=== PATIENT | female | born 1980 | race Caucasian/White ===

== ENCOUNTER 2016-12-08 20:14 | Emergency (ER) | payer OTHER ==
[~2016-12-08] VITALS: Ht 175.3 cm; Wt 131.8 kg
[~2016-12-08 20:14] MED LIST: AMOX-366 PO; OXYC1TAB24 PO; PRE20 PO
[2016-12-08 20:16] VITALS: BP 159/104; PULSE 123; RESP 18; O2SAT 97
[2016-12-08 21:23] LABS: Mean Corpuscular Volume 76 fL (81-100); NEUTROPHILS % (AUTO) 71 % (40-74); Platelet Count 304 bil/L (150-400)
[2016-12-08 21:24] LABS: BASOPHILS % (AUTO) 0 % (0-3); EOSINOPHILS % (AUTO) 2 % (0-5); MONOCYTES % (AUTO) 5 % (4-12)
[2016-12-08 21:40] LABS: Magnesium 1.9 mg/dL (1.6-2.6)
--- NOTE | 2016-12-08 22:29 | ED.REPORT ---
HPI-Abd Pain F Under 41 Date of Service Dec 08, 2016 ED Provider: Rito Yoon MD Pt is a 36 y/o female w/ a hx of multiple kidney stones presenting to the ED c/ o left flank pain onset 2 days ago. She has a 20 year history of kidney stones and has had a ureteral stent placed in the right ureter previously as well as required a surgical removal of a stone on the right. She is certain her pain now is caused by a kidney stone and states that "it is right at the bladder and almost out". She is out of Flomax and her typical pain medication. She c/o associated mild dysuria. Pt denies fever, chills, abdominal pain, nausea, vomiting. Nursing Notes Stated Complaint: KIDNEY STONES Chief Complaint: Female Abdominal Pain Nursing Notes Reviewed: Yes Allergies: Coded Allergies: No Known Allergies (Verified Allergy, Unknown, 03/18/15) Scheduled Amoxicillin/Clav K 875-125 mg (Augmentin 875-125 mg) 1 Each Tablet 1 TABLET PO BID Prednisone (PredniSONE) 20 Mg Tablet 40 MG PO DAILY Tamsulosin (Flomax) 0.4 Mg Capsule 0.4 MG PO DAILY Scheduled PRN oxyCODONE-Acetaminophen 5-325 mg (oxyCODONE-Acetaminophen 5-325 mg) 1 Each Tablet 1-2 TAB PO Q6H PRN PRN For Pain General Time Seen by MD: 22:27 Chief Complaint Flank pain left Hx Obtained From: Patient Arrived By: Walk-in Sudden in Onset?: No Onset Occurred: 2 days ago Symptom Duration: Since onset Progression since Onset: Constant Location: : Flank left Quality: Painful Severity: Current: Moderate Severity: Maximum: Moderate Recent Healthcare: Recent testing, Previous diagnosis, Prior workup Similar Sx Previous: Yes Past Medical History Past Medical History Chronic kidney stones Past Surgical History Kidney stone removal with right ureteral STENT placed. Family History Noncontributory Smoking History Current Every Day Smoker Social History Alcohol Use: Denies alcohol use Drug Use: Denies drug use Other Social History: Local resident Ambulatory Status Independent Review of Systems Constitutional: Denies: Chills, Fever Respiratory: Denies: Non-productive cough, Shortness of breath Cardiovascular: Denies: Chest pain GI: Denies: Abdominal pain, Nausea, Vomiting Female: Reports: Dysuria, Flank pain Complete sys rev & neg: except as marked. Physical Exam Initial Vital Signs Vital Signs (First) Date Time Temp Pulse Resp B/P Pulse Ox O2 Delivery O2 Flow Rate FiO2 12/08/16 20:16 36.6 123 18 159/104 97 Room Air Initial VS: Reviewed, Vital signs abnormal Head / Eyes: Atraumatic, Normocephalic, PERRL ENT: Mucous membranes moist, Conjunctiva normal, No scleral icterus Neck: Supple, Full range of motion Extremities: Vascular intact, Neuro intact, No swelling Skin: Warm, Dry, No cyanosis Neurologic: Alert, Oriented, Nonfocal Psychiatric: Mood/affect normal, Behavior normal, Normal thought content General/Constitutional: Awake, Alert, Cooperative, Not toxic appearing Distress / Hydration: Positive: Distress mild Appearance / Presentation: Positive: Uncomfortable Respiratory / Chest: Breath sounds NL, Breath sounds = bilat, No respiratory distress, No rales, No rhonchi, No wheezing Cardiovascular: Heart rate NL, Regular rhythm, Heart sounds NL, No murmurs Abdomen: Atraumatic, Soft, No guarding, No rebound, No distention Mild left suprapubic tenderness Back: Full range of motion, Painless range of motion, No CVA tenderness Interpretation & Diagnostics Lab Results Interpretation Result Diagram: 12/08/16211112/08/16 211 Test 12/08/16 20:36 12/08/16 21:12 Hold Urine Received (Received) White Blood Count 12.8th/mm3 (3.8-10.1) Red Blood Count 5.12mil/mm3 (3.90-5.20) Hemoglobin 12.8g/dL (12.0-15.6) Hematocrit 38.8% (35.0-46.0) Mean Corpuscular Volume 76fL (81-100) Mean Corpuscular Hemoglobin 25.0pg (27.0-35.0) Mean Corpuscular Hemoglobin Concent 33.0% (32.0-37.0) Red Cell Distribution Width 14.7% (12.3-15.4) Platelet Count 304bil/L (150-400) Neutrophils (%) (Auto) 71% (40-74) Lymphocytes (%) (Auto) 21% (14-46) Monocytes (%) (Auto) 5% (4-12) Eosinophils (%) (Auto) 2% (0-5) Basophils (%) (Auto) 0% (0-3) Band Neutrophils % 0% (1-5) Sodium Level 137mEq/L (134-144) Potassium Level 3.9mEq/L (3.5-5.2) Chloride Level 99mEq/L (97-108) Carbon Dioxide Level 23mmol/L (18-29) Blood Urea Nitrogen 11mg/dL (6-20) Creatinine 0.80mg/dL (0.57-1.00) Estimat Glomerular Filtration Rate 117mL/min (>59) Glucose Level 134mg/dL (60-99) Calcium Level 9.3mg/dL (8.5-10.1) Magnesium Level 1.9mg/dL (1.6-2.6) Total Bilirubin 0.2mg/dL (0.0-1.2) Aspartate Amino Transf (AST/SGOT) 17U/L (0-50) Alanine Aminotransferase (ALT/SGPT) 15U/L (0-32) Alkaline Phosphatase 106U/L (25-150) Total Protein 7.4g/dL (6.4-8.4) Albumin 4.0g/dL (3.4-5.0) Lipase 37U/L (13-60) Re-Eval/Medical Decision Med Decision/Clinical Course Med Decision/Clinical Course: 36-year-old female long history of kidney stones presenting complaining of left flank pain. She denies any fevers, nausea vomiting, abdominal pain. She has no CVA tenderness. She has mild left suprapubic tenderness. Urine is negative for infection. There is blood. She is not on her menstrual cycle. Not . Her labs are reassuring mild leukocytosis. She is declining imaging. She is requesting Flomax and pain medications. She was given Toradol and Flomax. She will follow up with her primary doctor. Return precautions given if any new or worsening pain, fevers, nausea vomiting, any other new or worsening symptoms. Re-Evaluation/Progress : Time of Eval: 22:37 Re-Evaluation/Progress Note: Pt rechecked. She is declining CT and simply wants more Flomax and pain medication. Informed pt of plan for discharge. Pt understands and agrees with plan for discharge. F/U instructions and RTER warnings given. All questions addressed. Counseled Regarding: Diagnosis, Lab results, Need for follow-up, When/why to return to ED Discharge & Departure Primary Impression: Left flank pain Additional Impression: Nephrolithiasis Disposition: Home Discharge Condition All VS Reviewed: Yes Condition: Stable Patient Instructions: Kidney Stones (ED) Additional Instructions: Thank you for seeking care at the emergency room. Given your history I agree with you that you likely have another kidney stone. Labs today were reassuring. There was no sign of infection. You declined a CT scan at this time. You will be discharged with a prescription for Percocet. Take 1 tablet every 6 hours as needed for severe or breakthrough pain. Do not drive or consume alcohol while taking Percocet. You should follow-up with your primary doctor or urologist in 2-3 days. You should return to the Emergency Department immediately if you develop fevers , vomiting, abdominal pain, worsening pain, or any other concerning signs or symptoms. Thank you for letting us partake in your care today. Referrals: [facility] Scribe Attestation Portions of this note were transcribed by Dez Roque. I, Dr. Yoon personally performed the history, physical exam and medical decision-making; I reviewed and confirmed the accuracy of the information in the transcribed note. Signed by Derek Beal, 12/08/16 - [id number] Rito Yoon MD Dec 08, 2016 22:29 DEZ ROQUE Dec 08, 2016 22:37
[2016-12-08] MEDS ORDERED: _oxyCODONE/APAP 5-325 mg Tablet PO PRN (22:40)
[2016-12-08] MEDS ORDERED: TAMS0.4C98 PO (22:41)
[2016-12-08 23:20] VITALS: BP 158/107; PULSE 101; RESP 16; O2SAT 97
== END 2016-12-08 23:21 | disposition home or self-care (01) ==
LOC: SED 20:14
DX: N20.0 Calculus of kidney (principal); N18.9 Chronic kidney disease, unspecified; F17.200 Nicotine dependence, unspecified, uncomplicated; Z96.0 Presence of urogenital implants
CPT/HCPCS: 36415; 80053; 81025; 83690; 83735; 85025; 96372; 99284; J1885